=== PATIENT | female | born 1950 ===

== ENCOUNTER 2018-12-03 17:45 | Emergency (ER) | payer OTHER ==
[2018-12-03] MEDS ORDERED: fentaNYL 100 MCG/2 ML INJ ONE (18:18)
[2018-12-03] MEDS ORDERED: fentaNYL 100 MCG/2 ML INJ IVP ONE ×2 (18:20)
[2018-12-03] MEDS ORDERED: HYDROCOD/APAP 5/325 PREPACK#6 BTL TAKEHOME ONE (19:09)
--- NOTE | 2018-12-03 19:09 | EDPHY ---
H & P Stated Complaint: Dislocated left shoulder and injury to left arm this afternoon. Time Seen by Provider: 12/03/18 18:06 HPI/ROS: Chief complaint: Left shoulder injury History of present illness: This is a 68-year-old female who presents to the emergency department for left shoulder injury. Patient was playing basketball with her grandson today when she fell and struck her left shoulder against a car. Since then she has had pain and inability to move it. She reports some numbness over the outer aspect of the shoulder. She went to urgent care, x- rays were taken and she was referred here for fracture dislocation. Patient denies open wounds or abnormal coolness to the left upper extremity. She denies trauma to other parts of the body including head, neck, back, chest abdomen or other extremities. Review of systems: A 10 point review of systems was obtained and other than described above was negative - Personal History Current Tetanus Diphtheria and Acellular Pertussis (TDAP): Yes - Medical/Surgical History Hx Asthma: No Hx Chronic Respiratory Disease: No Hx Diabetes: No Hx Cardiac Disease: No Hx Renal Disease: No Hx Cirrhosis: No Hx Alcoholism: No Hx HIV/AIDS: No Hx Splenectomy or Spleen Trauma: No Other PMH: Denies - Social History Smoking Status: Never smoked - Physical Exam Exam: General Appearance: Alert, nontoxic Eyes: PERRLA. No raccoon eyes. ENT: No hemotympanum. No Lindsey sign. Respiratory: Lungs clear to auscultation bilaterally. Cardiovascular: Regular rate and rhythm. Radial pulses 2+. Neurological: Alert and oriented. Strength and sensation intact and symmetrical except for the left shoulder where she has decreased strength due to pain. Skin: No open wounds to the left upper extremity. Musculoskeletal: The head is nontender without crepitus or bony deformity. The spine is nontender to palpation along its entire length. There is no crepitus, bony deformity or step-off. Chest wall intact palpation. Left shoulder is tender diffusely. She does not want move it secondary to pain. Elbow, forearm, wrist and hand are unremarkable and she can move the elbow, wrist and digits well. Constitutional: Initial Vital Signs Temperature (C) 36.6 C 12/03/18 17:49 Heart Rate 96 12/03/18 17:49 Respiratory Rate 16 12/03/18 17:49 Blood Pressure 177/101 H 12/03/18 17:49 O2 Sat (%) 90 L 12/03/18 17:49 O2 Delivery Mode Room Air O2 (L/minute) 4 Allergies/Adverse Reactions: amoxicillin Allergy (Verified 12/03/18 17:52) Home Medications: Medication Instructions Recorded Hydrocodone/APAP 5/325 [[place] 1 tab PO Q6H #6 tab 12/03/18 5/325 (*)] Zoloft 100mg (*) 12/03/18 Medical Decision Making - Diagnostics Imaging Results: Imaging Impressions Shoulder X-Ray 12/03/18 18:35 Impression: Normal glenohumeral alignment. Cortical irregularity the greater tuberosity suggests nondisplaced fracture injury. Imaging: I viewed and interpreted images myself Procedures: Procedure: Dislocation reduction. The shoulder was reduced in the usual fashion without complications. Post reduction the patient's neurovascular exam is normal. Post reduction x-ray demonstrates reduction of the joint to the anatomic position. The procedure was performed by myself. Patient was placed in a sling and swath. ED Course/Re-evaluation: Patient seen under the supervision of my secondary supervising physician Dr. Jean Paul Soto. Patient presents for a left shoulder injury. X-ray obtained at urgent care shows a fracture dislocation. Dislocation is reduced. Post reduction shows good alignment but with a greater tuberosity fracture. She has good vascular flow to the left arm. Both pre and post reduction she has some numbness over the left deltoid region otherwise she is neurologically intact in the rest of the left upper extremity. By history and physical exam I do not appreciate further trauma. Patient is discharged home. Home care including pain management is discussed. She is referred to Orthopedics for recheck. Return precautions are given. The patient voiced understanding and agreement with plan. Differential Diagnosis: Included but not limited to dislocation, fracture, sprain or strain, contusion - Data Points Medications Given: Discontinued Medications Hydrocodone Bitart/Acetaminophen ([place] 5/325mg Prepack#6) 1 btl TAKEHOME EDNOW ONE Stop: 12/03/18 19:10 Last Admin: 12/03/18 19:14 Dose: 1 btl Fentanyl (Sublimaze) 50 mcg IVP EDNOW ONE Stop: 12/03/18 18:21 Last Admin: 12/03/18 18:23 Dose: 50 mcg Fentanyl (Sublimaze) 50 mcg IVP EDNOW ONE Stop: 12/03/18 18:21 Last Admin: 12/03/18 18:29 Dose: 50 mcg Departure - Departure Disposition: Home, Routine, Self-Care Clinical Impression: Fracture dislocation of shoulder joint Qualifiers: Encounter type: initial encounter Fracture type: closed Laterality: left Qualified Code(s): S42.92XA - Fracture of left shoulder girdle, part unspecified , initial encounter for closed fracture Condition: Good Instructions: Shoulder Dislocation (ED), How to Use a Sling (ED) Additional Instructions: Follow-up with orthopedics for continued evaluation and care In regards to pain control see the following: Use ibuprofen 400 mg 3 times a day for the next 2-3 days for pain In addition You have been prescribed [place] for pain. [place] contains Tylenol, do not take extra Tylenol/acetaminophen/Apap with it. It is sedating. Wear sling at all times until told otherwise by Orthopedics If symptoms worsen or new symptoms develop return to the emergency room for recheck Referrals: MELVINA GUTIERRES [Primary Care Provider] - As per Instructions Efrain Davis MD [Medical Doctor] - As per Instructions Prescriptions: Hydrocodone/APAP 5/325 [[place] 5/325 (*)] 1 tab PO Q6H #6 tab
[2018-12-03 20:06] VITALS: BP 132/82
== END 2018-12-03 20:06 | disposition home or self-care (01) ==
PROC: 0RSKXZZ Reposition Left Shoulder Joint, External Approach (ICD-10-PCS; principal; 2018-12-03)
DX: S42.92XA Fracture of left shoulder girdle, part unspecified, initial encounter for closed fracture (principal); W18.49XA Other slipping, tripping and stumbling without falling, initial encounter; Y93.67 Activity, basketball; Y92.310 Basketball court as the place of occurrence of the external cause
CPT/HCPCS: 23650; 73030; 96374; 99284; J3010

== ENCOUNTER → 2018-12-03 | Outpatient (CLI) | payer OTHER | LOC: BMCIMAGING 16:53 → MERGE 16:53 | PROVIDERS: ATTEND Family Medicine | DX: S43.015A Anterior dislocation of left humerus, initial encounter (principal) ==